=== PATIENT | female | born 1985 | race Caucasian/White ===

== ENCOUNTER 2018-09-10 18:10 | Emergency (ER) | payer OTHER ==
[~2018-09-10] VITALS: Ht 157.5 cm; Wt 69.8 kg
[~2018-09-10 18:10] MED LIST: A.E.R PADS1 JAR TOP; APAP500 PO; DERMOPLAST SPRA56 ML; IBUPROFEN 800800 M1 PO; LANOLIN56 GM; PREPARATION H26 GM TP
[2018-09-10] MEDS ORDERED: SYNTHROID25 MC1 PO (18:48)
[2018-09-10] MEDS ORDERED: CELEXA40 MG PO (18:49)
[2018-09-10] MEDS ORDERED: BUSPIRONE HCL10 MG PO (18:49)
[2018-09-10] MEDS ORDERED: MOBIC15 MG PO (18:53)
[2018-09-10] MEDS ORDERED: PENICILLIN V P500 MG PO (18:53)
[2018-09-10 19:05] VITALS: BP 115/71
== END 2018-09-10 19:05 | disposition home or self-care (01) ==
LOC: ER 18:10
DX: K02.9 Dental caries, unspecified (principal)